=== PATIENT | female | born 1955 | race Caucasian/White ===

== ENCOUNTER 2024-03-21 15:18 | Emergency (ER) | payer MEDICARE ==
[~2024-03-21] VITALS: Ht 152.4 cm; Wt 81.6 kg
[2024-03-21 17:57] LABS: BASOPHILS % 0.7 % (0.0-1.0); EOSINOPHILS % 0.7 % (0.0-6.0); HEMATOCRIT 45.3 % (34.2-44.1); HEMOGLOBIN 14.9 g/dL (12.0-16.0); LYMPHOCYTES % 17.4 % (18.0-39.1); MEAN CORPUSCULAR HGB CONC 32.9 g/dL (31-35); MEAN CORPUSCULAR VOLUME 94.2 fL (81-99); MONOCYTES % 16.7 % (4.4-11.3); NEUTROPHILS # (AUTO) 3.7 (2.1-6.9); NEUTROPHILS % 64.1 % (38.7-80.0); PLATELET COUNT 230 x10e3/uL (140-360); RED BLOOD COUNT 4.81 x10e6/uL (3.6-5.1); RED CELL DISTRIBUTION WIDTH 12.9 % (11.7-14.4); WHITE BLOOD COUNT 5.69 x10e3/uL (4.8-10.8)
[2024-03-21] MEDS: SODIUM CHLORIDE 0.9% 1000ML 1,000 ML IV STA (17:59)
[2024-03-21 18:02] VITALS: PULSE 67; RESP 18; TEMP 100
[2024-03-21 18:12] LABS: ALBUMIN 4.2 g/dL (3.5-5.0); ALBUMIN/GLOBULIN RATIO 1.1 (0.8-2.0); ANION GAP 15.1 mmol/L (8-16); BILIRUBIN,TOTAL 0.4 mg/dL (0.2-1.2); CALCIUM 9.8 mg/dL (8.4-10.2); CREATININE, SERUM 0.84 mg/dL (0.57-1.11); POTASSIUM 4.1 mmol/L (3.5-5.1); TOTAL PROTEIN 8.2 g/dL (6.5-8.1)
[2024-03-21 19:19] LABS: BILIRUBIN,URINE NEGATIVE (NEGATIVE); CLARITY,URINE CLEAR (CLEAR); COLOR,URINE YELLOW (YELLOW); GLUCOSE, URINE NEGATIVE (NEGATIVE); KETONES,URINE TRACE (NEGATIVE); LEUKOCYTE ESTERASE ,URINE SMALL (NEGATIVE); NITRITE,URINE NEGATIVE (NEGATIVE); PH,URINE 7 (5 - 7); PROTEIN,URINE DIPSTICK NEGATIVE (NEGATIVE); URINE UROBILINOGEN 0.2 mg/dL (0.2 - 1)
[2024-03-21 19:30] LABS: BACTERIA,URINE MODERATE /HPF; EPITHELIAL CELLS,URINE MODERATE /LPF; RENAL EPITHELIAL CELLS,URINE RARE
[2024-03-21] MEDS ORDERED: MACROBID 100 M100 MG PO (19:35)
[2024-03-22] MEDS: ACETAMINOPHEN 325 MG TAB PO ONE (00:13)
[2024-03-22 00:14] VITALS: BP 129/77; PULSE 71; RESP 18; TEMP 98.3; O2SAT 99
== END 2024-03-21 19:50 | disposition home or self-care (01) ==
LOC: ER 16:06
DX: M54.50 Low back pain, unspecified (principal); U07.1 COVID-19; N39.0 Urinary tract infection, site not specified; R05.9 Cough, unspecified
CPT/HCPCS: 36415; 71045; 80053; 81001; 83735; 85025; 87086; 87400; 99284; J7030; U0002